=== PATIENT | female | born 1985 | race Hispanic/Latino ===

== ENCOUNTER 2018-05-26 10:35 | Emergency (ER) | payer SELFPAY ==
[2018-05-26 11:27] LABS: Absolute Lymphocytes (CBC) 1.4 K/uL (0.7-4.9); Absolute Monocytes 0.6 K/uL (0.1-1.3); Basophils % 0.8 % (0-1.3); Eosinophils % 2.2 % (0-4.4); Hematocrit 40.2 % (36.0-45.0); Lymphocytes % 16.9 % (15.3-44.8); MCH 30.2 pg (27.0-35.0); MCV 90.5 fL (80-100); MPV 7.4 fL (7.6-11.3); Monocytes % 7.6 % (3.3-12.3); RBC Red Blood Cell Count 4.45 M/uL (3.86-4.86)
[2018-05-26 12:39] LABS: Albumin 3.4 g/dL (3.4-5.0); Bilirubin Total 0.7 mg/dL (0.2-1.0); Protein, Total 7.3 g/dL (6.4-8.2)
--- NOTE | 2018-05-26 13:31 | RAD REPORT ---
EXAM DESCRIPTION: CT - Maxillofacial W/Cont - 05/26/2018 12:58 pm CLINICAL HISTORY: facial swelling COMPARISON: <Comparisons> FINDINGS: Large crown erosion is are present involving the left mandibular first and second molar. P rominent periapical lucency is seen involving both of these teeth compatible with periapical abscesse s. The right maxillary first premolar demonstrates a significant crown erosion as well. Right maxilla ry third molar shows periapical lucency with complete absence of the crown and the root of the tooth still present. Soft tissue swelling is seen along the right aspect of the mandible and maxilla. No abscess is apprec iated. Mild mucoperiosteal thickening is seen involving the right maxillary antrum. IMPRESSION: Odontogenic abnormalities as detailed above.
--- NOTE | 2018-05-26 13:43 | ER ---
Nurse's Notes [facility] Name: Dottie Nino Age: 33 yrs Sex: Female : 1985 Arrival Date: 05/26/2018 Time: 10:41 Bed 7 Private MD: Diagnosis: Periapical abscess without sinus Presentation: 05/26 10:46 Presenting complaint: Patient states: right sided facial swelling and pain has sv increased over the last 2 weeks. Pt was seen in [place], [place] ER and was diagnosed with right upper molar had broken and prescribed Tramadol and Clindamycin. Report "feeling hot" at home. Transition of care: patient was not received from another setting of care. Onset of symptoms was May 12, 2018. Risk Assessment: Do you want to hurt yourself or someone else? Patient reports no desire to harm self or others. Initial Sepsis Screen: Does the patient meet any 2 criteria? No. Patient's initial sepsis screen is negative. Does the patient have a suspected source of infection? No. Patient's initial sepsis screen is negative. Care prior to arrival: None. 10:46 Method Of Arrival: Ambulatory sv 10:46 Acuity: PRATIK 3 sv Triage Assessment: 10:46 General: Appears in no apparent distress. uncomfortable, Behavior is calm, cooperative, sv appropriate for age. Pain: Complains of pain in right zygomatic area and right cheek Pain currently is 8 out of 10 on a pain scale. Quality of pain is described as tender, Is continuous. EENT: Reports pain in right zygomatic area, right cheek and right mandible. Neuro: Level of Consciousness is awake, alert, obeys commands, Oriented to person, place, time, situation, Moves all extremities. Full function Gait is steady, Speech is normal. Respiratory: Respiratory effort is even, unlabored, Respiratory pattern is regular, symmetrical. Derm: Skin is normal. Musculoskeletal: Range of motion: intact in all extremities, Swelling present in right zygomatic area, right cheek and right mandible. 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 - Social history:: Smoking status: Patient/guardian denies using tobacco. - Ebola Screening: : No symptoms or risks identified at this time. Screenin:46 Abuse screen: Denies threats or abuse. Denies injuries from another. Nutritional sv screening: No deficits noted. Tuberculosis screening: No symptoms or risk factors identified. Fall Risk None identified. Assessment: 11:02 Reassessment: See triage assessment. sv Vital Signs: 10:59 BP 113 / 81; Pulse 76; Resp 18; Temp 99.1(O); Pulse Ox 99% on R/A; Weight 65.77 kg; sv Height 5 ft. 1 in. (154.94 cm); Pain 8/10; 11:59 BP 109 / 81; Pulse 76; Resp 18; Pulse Ox 97% on R/A; dh3 13:02 BP 108 / 77; Pulse 69; Resp 18; Pulse Ox 100% on R/A; dh3 13:40 BP 110 / 78; Pulse 67; Resp 17; Pulse Ox 100% on R/A; dh3 10:59 Body Mass Index 27.40 (65.77 kg, 154.94 cm) sv ED Course: 10:41 Patient arrived in ED. as 10:46 Arm band placed on right wrist. sv 10:46 Patient has correct armband on for positive identification. Bed in low position. Adult sv w/ patient. Pulse ox on. NIBP on. Door closed. Head of bed elevated. 10:48 Ancelmo Wilde PA is PHCP. [facility] 10:48 Aaron Cuellar MD is Attending Physician. [facility] 10:51 Genevieve Michael RN is Primary Nurse. sv 10:56 Triage completed. sv 11:15 Initial lab(s) drawn, by pa, sent to lab. Inserted saline lock: 20 gauge in left em1 antecubital area, using aseptic technique. Blood collected. 11:25 Urine collected: clean catch specimen, olga colored. sv 11:36 Radiology exam delayed due to lab results not completed at this time. (BUN/Creatinine). 12:58 CT completed. Patient tolerated procedure well. Patient moved to CT via wheelchair. Patient moved back from CT. 12:59 CT Maxillofacial W/cont In Process Unspecified. EDMS 13:42 Guille Gomez DDS is Referral Physician. jmm 13:56 No provider procedures requiring assistance completed. IV discontinued, intact, ss bleeding controlled, No redness/swelling at site. Pressure dressing applied. Administered Medications: No medications were administered Outcome: 13:42 Discharge ordered by . [facility] 13:56 Discharged to home ambulatory, with family. ss 13:56 Condition: good 13:56 Discharge instructions given to patient, family, Instructed on discharge instructions, follow up and referral plans. medication usage, Demonstrated understanding of instructions, follow-up care, medications, Prescriptions given X 2. 13:57 Patient left the ED. Signatures: Dispatcher [employer] EDMS Genevieve Michael, RN RN Ancelmo Gama PA PA jmm Jones, Susan sj Martinez, Darinel Hale 1 Fifi Jean RN RN Lashawn Whiting 3
--- NOTE | 2018-05-26 13:43 | EDPHYS ---
Physician Documentation [facility] Name: February Trung Age: 33 yrs Sex: Female : 1985 Arrival Date: 05/26/2018 Time: 10:41 Bed 7 Private MD: ED Physician Aaron Cuellar HPI: 05/26 11:04 This 33 yrs old Female presents to ER via Ambulatory with complaints of Facial jmm Swelling, Toothache. 11:04 The patient presents with pain, swelling. The problem is located in the right cheek and jmm right zygomatic area. Onset: The symptoms/episode began/occurred gradually, 2 week(s) ago. This is a 33 year old male with no chronic medical conditions presents to the ED with right sided facial swelling beginning approx 2 weeks ago. Patient states that she began antibiotics 3 days ago. The patient states she has decreased swelling to the right side of her face but that the pain has moved to the mid upper lip region. Patient denies fever. .. 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 - Social history:: Smoking status: Patient/guardian denies using tobacco. - Ebola Screening: : No symptoms or risks identified at this time. ROS: 11:04 Constitutional: Negative for fever, chills, and weight loss. jmm 11:04 ENT: Positive for Gum pain 11:04 All other systems are negative. Exam: 11:04 Constitutional: The patient appears in no acute distress, alert, awake. jmm 11:04 Head/face: facial swelling noted to the right maxillary region, no erythema or induration appreciated. . 11:04 ENT: Dental exam: gum swelling, that is moderate, specifically in the upper right first bicuspid (#5) and upper right cuspid (#6). 11:04 Neck: ROM/movement: is normal. 11:04 Cardiovascular: Rate: normal. 11:04 Respiratory: the patient does not display signs of respiratory distress. 11:04 Skin: Appearance: Color: normal in color. 11:04 Neuro: Orientation: is normal, Mentation: is normal, Memory: is normal, Gait: is steady. 11:04 Psych: Behavior/mood is pleasant, cooperative. Vital Signs: 10:59 BP 113 / 81; Pulse 76; Resp 18; Temp 99.1(O); Pulse Ox 99% on R/A; Weight 65.77 kg; sv Height 5 ft. 1 in. (154.94 cm); Pain 8/10; 11:59 BP 109 / 81; Pulse 76; Resp 18; Pulse Ox 97% on R/A; dh3 13:02 BP 108 / 77; Pulse 69; Resp 18; Pulse Ox 100% on R/A; dh3 13:40 BP 110 / 78; Pulse 67; Resp 17; Pulse Ox 100% on R/A; dh3 10:59 Body Mass Index 27.40 (65.77 kg, 154.94 cm) sv MDM: 10:59 Patient medically screened. [facility] 11:39 Data reviewed: vital signs, nurses notes. [facility] 13:35 Data reviewed: lab test result(s), radiologic studies, CT scan. [facility] 13:35 Counseling: I had a detailed discussion with the patient and/or guardian regarding: the [facility] historical points, exam findings, and any diagnostic results supporting the discharge/admit diagnosis, lab results, radiology results, the need for outpatient follow up, to return to the emergency department if symptoms worsen or persist or if there are any questions or concerns that arise at home. ED course: Patients labs are unremarkable. patient states swelling has decreased. patient is encouraged to continue oral antibiotics. given return precautions for increased swelling or fever. patient is otherwise given follow up information for oral surgery. patient understood and agrees with the plan of care. . 05/26 11:01 Order name: CBC with Diff; Complete Time: 11:39 [facility] 05/26 11:01 Order name: CMP; Complete Time: 12:51 [facility] 05/26 11:03 Order name: CT Maxillofacial W/cont; Complete Time: 13:32 [facility] 05/26 11:36 Order name: Urine Dipstick--Ancillary (enter results) 05/26 11:36 Order name: Urine --Ancillary (enter results) 05/26 11:01 Order name: Saline Lock; Complete Time: 11:15 [facility] 05/26 11:01 Order name: Urine Test (obtain specimen); Complete Time: 11:25 [facility] Administered Medications: No medications were administered Disposition: 18:18 Co-signature as Attending Physician, Aaron Cuellar MD. rn Disposition: 05/26/18 13:42 Discharged to Home. Impression: Periapical abscess without sinus. - Condition is Stable. - Discharge Instructions: Dental Abscess. - Prescriptions for Peridex 0.12 % Mucous Membrane mouthwash - place 15 milliliter by MUCOUS MEMBRANE route 2 times per day after brushing teeth, swish in mouth for 30 seconds then spit out; 1 bottle. Tylenol- Codeine #3 300-30 mg Oral Tablet - take 1 tablet by ORAL route every 6 hours As needed; 20 tablet. - Medication Reconciliation Form, Thank You Letter, Antibiotic Education, Prescription Opioid Use form. - Follow up: Guille Gomez DDS; When: 2 - 3 days; Reason: Continuance of care. Signatures: Dispatcher [employer] [facility] Genevieve Michael RN RN Ancelmo Gama PA PA [facility] Aaron Cuellar MD MD rn [facility] RN RN ss Corrections: (The following items were deleted from the chart) 11:30 11:01 Facial Bones W/ Con \T\ [id number] ordered. [facility] 13:57 13:42 05/26/2018 13:42 Discharged to Home. Impression: Periapical abscess without ss sinus. Condition is Stable. Forms are Medication Reconciliation Form, Thank You Letter, Antibiotic Education, Prescription Opioid Use. Follow up: Guille Gomez; When: 2 - 3 days; Reason: Continuance of care. [facility]
[2018-05-26 14:54] LABS: Urine Blood NEGATIVE (NEG); Urine Glucose NEGATIVE (NEG); Urine Protein NEGATIVE (NEG)
== END 2018-05-26 13:57 | disposition home or self-care (01) ==
LOC: ER 10:35
DX: K04.7 Periapical abscess without sinus (principal)
CPT/HCPCS: 36415; 70487; 80053; 81003; 81025; 85025; 99284; Q9967